=== PATIENT | male | born 1950 | race Two or more races ===

== ENCOUNTER 2019-02-13 20:55 | Emergency (ER) | payer MEDICARE, OTHER ==
[~2019-02-13] VITALS: Ht 167.6 cm; Wt 73.5 kg
[~2019-02-13 20:55] MED LIST: ASPI-1169 PO; ATOR40TA PO; FINA5TAB11 PO; METO25TA6 PO; OMEG1CAP PO; RANI150T8 PO; SOLI10TA2 PO; TAMS0.4C34 PO; VITA1TAB56 PO
--- NOTE | 2019-02-13 21:30 | NUR ---
PT BIBSELF COMPLAINING OF DIZZINESS X 1 DAY. PT STATES HE HAS RED URINE AND PROSTATE SURGERY X 2 WEEKS. PT AXO4. RESPIRATIONS EVEN AND UNLABORED. PT PUT ON THE MONITOR AND PULSE OX.
--- NOTE | 2019-02-13 21:33 | NUR ---
GOLDY TOLEDO AT BEDSIDE.
--- NOTE | 2019-02-13 21:40 | NUR ---
[employer] SECRETARY AT BEDSIDE. LABS SENT.
[2019-02-13 21:53] LABS: BASOPHILS % (AUTO) 0.6 % (0.0-2.0); EOSINOPHILS % (AUTO) 1.4 % (0.0-6.0); HEMATOCRIT 36 % (39-51); HEMOGLOBIN 12.2 g/dL (13.5-17.5); LYMPHOCYTES # (AUTO) 2.1 /CMM (0.8-4.8); LYMPHOCYTES % (AUTO) 26.2 % (20.0-44.0); MEAN CORPUSCULAR HGB CONC 34 g/dl (31.0-36.0); MEAN CORPUSCULAR VOLUME 99 fL (80-96); MONOCYTES # (AUTO) 0.6 /CMM (0.1-1.30); MONOCYTES % (AUTO) 7.4 % (2.0-12.0); NEUTROPHILS # (AUTO) 5.1 /CMM (1.8-8.9); NEUTROPHILS % (AUTO) 64.4 % (43.0-81.0); PLATELET COUNT (AUTO) 243 /CMM (150-450); WHITE BLOOD COUNT (AUTO) 7.9 K/uL (4.3-11.0)
[2019-02-13] MEDS ORDERED: IV NS 0.9% 1,000 ML BAG IV ONE (22:00)
[2019-02-13 22:03] LABS: CALCIUM, SERUM 8.1 mg/dL (8.5-10.1); POTASSIUM 4.2 mmol/L (3.5-5.1)
[2019-02-13 22:08] LABS: CREATININE 1.4 mg/dL (0.6-1.3)
[2019-02-13 22:24] LABS: APPEARANCE,URINE Slightly Cloudy (CLEAR); BILIRUBIN,URINE Negative (NEGATIVE); BLOOD, URINE Large Ery/uL (NEGATIVE); COLOR,URINE Amber (YELLOW); KETONES,URINE Negative (NEGATIVE); LEUKOCYTE ESTERASE ,URINE Trace (NEGATIVE); NITRITE, URINE Negative (NEGATIVE); PH,URINE 6.5 (5.0-8.0); PROTEIN,URINE 100 mg/dl (NEGATIVE); UGLUCOSE Negative (NEGATIVE); UROBILINOGEN,URINE 0.2 EU/dL (0.2)
[2019-02-13 22:31] LABS: BACTERIA,URINE Few /HPF (None Seen); RBC,URINE TOO NUMEROUS TO COUN /HPF (0-2); SQUAMOUS EPITHELIAL CELL,UR Few /HPF (None Seen)
--- NOTE | 2019-02-13 22:43 | NUR ---
Patient discharged to home in stable condition. Written and verbal after care instructions given. Patient verbalizes understanding of instruction. IV removed. Catheter intact and site benign. Pressure and 4x4 applied to site. No bleeding noted.
[2019-02-13 22:44] VITALS: BP 132/74
== END 2019-02-13 22:44 | disposition home or self-care (01) ==
LOC: ER 20:59
DX: R42 Dizziness and giddiness (principal); N40.0 Benign prostatic hyperplasia without lower urinary tract symptoms; I10 Essential (primary) hypertension; F41.9 Anxiety disorder, unspecified; E78.00 Pure hypercholesterolemia, unspecified; Z98.890 Other specified postprocedural states; Z79.82 Long term (current) use of aspirin
CPT/HCPCS: 36415; 80048; 81001; 85025; 96360; 99283; J7030; 81000-TC

== ENCOUNTER 2020-01-15 22:53 | Emergency (ER) | payer MEDICARE, OTHER ==
[~2020-01-15] VITALS: Ht 167.6 cm; Wt 79.4 kg
--- NOTE | 2020-01-15 23:10 | NUR ---
PATIENT CAME TO ER BED 9 C/O DIZZINESS FOR OVER A MONTH. PATIENT STATES THAT HE HAD HIS EARS CLEANED WHEN HE STARTED NOTICING DIZZINESS WHEN HE LAYS DOWN. AAOX4. NO SOB. BREATHING EVENLY AND UNLABORED ON ROOM AIR. CONNECTED TO MONITOR.
--- NOTE | 2020-01-15 23:17 | NUR ---
BLOOD DRAWN AND SENT TO LAB
[2020-01-15 23:19] LABS: BASOPHILS % (AUTO) 0.3 % (0.0-2.0); EOSINOPHILS % (AUTO) 0.8 % (0.0-6.0); HEMATOCRIT 40 % (39-51); HEMOGLOBIN 13.5 g/dL (13.5-17.5); LYMPHOCYTES # (AUTO) 2.4 /CMM (0.8-4.8); LYMPHOCYTES % (AUTO) 30.8 % (20.0-44.0); MEAN CORPUSCULAR HGB CONC 34 g/dl (31.0-36.0); MEAN CORPUSCULAR VOLUME 98 fL (80-96); MONOCYTES # (AUTO) 0.8 /CMM (0.1-1.30); MONOCYTES % (AUTO) 9.6 % (2.0-12.0); NEUTROPHILS # (AUTO) 4.6 /CMM (1.8-8.9); NEUTROPHILS % (AUTO) 58.5 % (43.0-81.0); PLATELET COUNT (AUTO) 229 /CMM (150-450); WHITE BLOOD COUNT (AUTO) 7.9 K/uL (4.3-11.0)
--- NOTE | 2020-01-15 23:19 | NUR ---
Patient is ambulatory with a steady gait.
[2020-01-15 23:24] LABS: CALCIUM, SERUM 8.6 mg/dL (8.5-10.1); CARBON DIOXIDE 33 mmol/L (21-32); CHLORIDE 102 mmol/L (98-107); CREATININE 1.1 mg/dL (0.6-1.3); GLUCOSE 91 mg/dL (74-106); POTASSIUM 3.9 mmol/L (3.5-5.1); SODIUM SERUM 140 mmol/L (136-145); UREA NITROGEN, BLOOD 26 mg/dL (7-18)
[2020-01-15 23:30] LABS: ALANINE AMINOTRANSFERASE 50 U/L (12-78); ALBUMIN 3.6 g/dL (3.4-5.0); ALKALINE PHOSPHATASE 102 U/L (46-116); ASPARTATE AMINOTRANSFERASE 34 U/L (15-37); BILIRUBIN,DIRECT 0.1 mg/dL (0.0-0.2); BILIRUBIN,TOTAL 0.4 mg/dL (0.2-1.0); TOTAL PROTEIN, SERUM 6.9 g/dL (6.4-8.2)
--- NOTE | 2020-01-16 00:16 | NUR ---
IV removed. Catheter intact and site benign. Pressure and 4x4 applied to site. No bleeding noted. Patient discharged to home in stable condition. Written and verbal after care instructions given. Patient verbalizes understanding of instruction.
[2020-01-16 00:17] VITALS: BP 122/78
== END 2020-01-16 00:17 | disposition home or self-care (01) ==
LOC: ER 22:58
DX: R42 Dizziness and giddiness (principal); I10 Essential (primary) hypertension; Z79.82 Long term (current) use of aspirin; E78.00 Pure hypercholesterolemia, unspecified; Z98.890 Other specified postprocedural states; Z90.89 Acquired absence of other organs; I45.10 Unspecified right bundle-branch block
CPT/HCPCS: 36415; 70450-TC; 80048-TC; 80076-TC; 84484-TC; 85025-TC; 85730-TC

== ENCOUNTER → 2022-01-06 | Emergency (ER) | payer MEDICARE, OTHER ==
[~2022-01-06] VITALS: Ht 167.6 cm; Wt 77.1 kg
[~2022-01-06] MED LIST changes: +HYDR-3972 PO; +HYDROCODONE/APAP 5/325MG TABLET ONE; +HYDROCODONE/APAP 5/325MG TABLET PO ONE; +MECL-159 PO; +MECLIZINE HCL 12.5 MG TABLET ONE; +MECLIZINE HCL 12.5 MG TABLET PO ONE
--- NOTE | 2022-01-06 18:30 | NUR ---
pt came in c/o headach starting yesterday, per pt he took tylenol but headach did not go away. pt is a/o x4,connected to monitor.
--- NOTE | 2022-01-06 18:30 | NUR ---
PT IS WHEELED TO CT SCAN VIA [facility].
--- NOTE | 2022-01-06 19:59 | NUR ---
Patient discharged to home in stable condition.Rx, Written and verbal after care instructions given. Patient verbalizes understanding of instruction.
[2022-01-06 20:02] VITALS: BP 136/88
== END | disposition home or self-care (01) ==
LOC: ER 18:01
DX: R42 Dizziness and giddiness (principal); G44.209 Tension-type headache, unspecified, not intractable; I10 Essential (primary) hypertension; F41.9 Anxiety disorder, unspecified; Z85.46 Personal history of malignant neoplasm of prostate; Z85.118 Personal history of other malignant neoplasm of bronchus and lung; E78.00 Pure hypercholesterolemia, unspecified; Z87.438 Personal history of other diseases of male genital organs; Z87.710 Personal history of (corrected) hypospadias; Z90.49 Acquired absence of other specified parts of digestive tract; Z79.82 Long term (current) use of aspirin; Z79.899 Other long term (current) drug therapy
CPT/HCPCS: 70450; 99284; J8597

== ENCOUNTER 2022-03-18 16:03 | Emergency (ER) | payer MEDICARE, OTHER ==
[~2022-03-18] VITALS: Ht 170.2 cm; Wt 71.2 kg
[~2022-03-18 16:03] MED LIST changes: -HYDROCODONE/APAP 5/325MG TABLET ONE; -HYDROCODONE/APAP 5/325MG TABLET PO ONE; -MECLIZINE HCL 12.5 MG TABLET ONE; -MECLIZINE HCL 12.5 MG TABLET PO ONE
--- NOTE | 2022-03-18 16:10 | NUR ---
BIB SELF C/O FEVER AND HEADACHE X 2 DAYS S/P CHEMO THERAPY INFUSION. PT ATTACHED TO MONITOR, PT IS TACHY ON MONITOR AND TEMP IS 100.5, MD AWARE. PT IS A&OX4. WARM BLNAKET PROVIDED FOR COMFORT. DR GILL AT BEDSIDE.
--- NOTE | 2022-03-18 16:22 | NUR ---
IV ESTABLIHSED L AC 20G. LABS DRAWN AND COLLECTED AT BEDSIDE.
--- NOTE | 2022-03-18 16:25 | NUR ---
PT UNALBLE TO PROVIDE URINE AT THIS TIME, PROVIDED WITH URINAL AT BEDSIDE.
[2022-03-18] MEDS: IV NS 0.9% 1,000 ML IV ONE (16:41)
[2022-03-18] MEDS ORDERED: ACETAMINOPHEN ES 500 MG TABLET ONE (16:45)
[2022-03-18] MEDS: ACETAMINOPHEN ES 500 MG TABLET PO ONE (16:48)
[2022-03-18 17:01] LABS: BASOPHILS % (AUTO) 0.3 % (0.0-2.0); HEMATOCRIT 31 % (39-51); HEMOGLOBIN 10.4 g/dL (13.5-17.5); LYMPHOCYTES # (AUTO) 0.6 K/uL (0.8-4.8); MEAN CORPUSCULAR HGB CONC 34 g/dl (31.0-36.0); MEAN CORPUSCULAR VOLUME 102 fL (80-96); MONOCYTES # (AUTO) 0.2 K/uL (0.1-1.30); MONOCYTES % (AUTO) 2.4 % (2.0-12.0); NEUTROPHILS # (AUTO) 5.4 K/uL (1.8-8.9); NEUTROPHILS % (AUTO) 87.3 % (43.0-81.0); PLATELET COUNT (AUTO) 183 K/uL (150-450); RED BLOOD CELL COUNT(AUTO) 3.06 MIL/uL (4.5-6.0); WHITE BLOOD COUNT (AUTO) 6.1 K/uL (4.3-11.0)
[2022-03-18 17:09] LABS: CALCIUM, SERUM 8.2 mg/dL (8.5-10.1); CARBON DIOXIDE 30 mmol/L (21-32); CHLORIDE 99 mmol/L (98-107); CREATININE 1.4 mg/dL (0.6-1.3); GLUCOSE 104 mg/dL (74-106); POTASSIUM 4.4 mmol/L (3.5-5.1); SODIUM SERUM 134 mmol/L (136-145); UREA NITROGEN, BLOOD 20 mg/dL (7-18)
--- NOTE | 2022-03-18 17:31 | NUR ---
COVID TEST COLLECTED AND SENT
--- NOTE | 2022-03-18 18:36 | NUR ---
URINE COLLECTED AND SENT
--- NOTE | 2022-03-18 19:13 | NUR ---
IV removed. Catheter intact and site benign. Pressure and 4x4 applied to site. No bleeding noted.Patient discharged to home in stable condition. Written and verbal after care instructions given. Patient verbalizes understanding of instruction.
[2022-03-18 19:14] VITALS: BP 109/71
[2022-03-18 19:16] LABS: BILIRUBIN,URINE NEGATIVE (NEGATIVE); COLOR,URINE YELLOW (YELLOW); LEUKOCYTE ESTERASE ,URINE NEGATIVE (NEGATIVE); NITRITE, URINE NEGATIVE (NEGATIVE); PH,URINE 5.5 (5.0-8.0); PROTEIN,URINE NEGATIVE (NEGATIVE); UGLUCOSE NEGATIVE (NEGATIVE); UROBILINOGEN,URINE 0.2 EU/dL (0.2)
[2022-03-18 20:27] LABS: BACTERIA,URINE None seen /HPF (None Seen); RBC,URINE 0-2 /HPF (0-2); SQUAMOUS EPITHELIAL CELL,UR 0-2 /HPF (None Seen); WBC,URINE 0-2 /HPF (0-3)
[2022-03-18 21:59] LABS: LYMPHOCYTES % (MANUAL) 14 % (16-48); MONOCYTES % (MANUAL) 3 % (0-11.0); NEUTROPHILS % (MANUAL) 83 (42-76)
== END 2022-03-18 19:14 | disposition home or self-care (01) ==
LOC: ER 16:03
DX: R50.2 Drug induced fever (principal); T45.1X5A Adverse effect of antineoplastic and immunosuppressive drugs, initial encounter; Y92.89 Other specified places as the place of occurrence of the external cause; C34.90 Malignant neoplasm of unspecified part of unspecified bronchus or lung; Z79.82 Long term (current) use of aspirin; Z79.899 Other long term (current) drug therapy; F41.9 Anxiety disorder, unspecified; E78.00 Pure hypercholesterolemia, unspecified; N40.0 Benign prostatic hyperplasia without lower urinary tract symptoms; Z20.822 Contact with and (suspected) exposure to COVID-19
CPT/HCPCS: 36415; 71045; 80048; 81001; 85007; 85025; 87426; 96360; 99285; J7030; C9803

== ENCOUNTER 2024-04-07 01:17 | Emergency (ER) | payer MEDICARE, OTHER ==
[~2024-04-07] VITALS: Ht 167.6 cm; Wt 68.0 kg
[~2024-04-07 01:17] MED LIST changes: +AMOX-430 PO; +LOPE2CAP PO
[2024-04-07 03:33] LABS: BASOPHILS % (AUTO) 0.1 % (0.0-2.0); EOSINOPHILS % (AUTO) 0.6 % (0.0-6.0); HEMATOCRIT 30 % (39-51); HEMOGLOBIN 9.8 g/dL (13.5-17.5); LYMPHOCYTES # (AUTO) 0.8 K/uL (0.8-4.8); LYMPHOCYTES % (AUTO) 10.2 % (20.0-44.0); MEAN CORPUSCULAR HEMOGLOBIN 30 PG (26.0-33.0); MEAN CORPUSCULAR HGB CONC 33 g/dl (31.0-36.0); MEAN CORPUSCULAR VOLUME 91 fL (80-96); MONOCYTES # (AUTO) 0.5 K/uL (0.1-1.30); MONOCYTES % (AUTO) 6.1 % (2.0-12.0); NEUTROPHILS # (AUTO) 6.7 K/uL (1.8-8.9); PLATELET COUNT (AUTO) 94 K/uL (150-450); RED BLOOD CELL COUNT(AUTO) 3.27 MIL/uL (4.5-6.0); RED CELL DISTRIBUTION WIDTH 18.3 % (11.5-15.0); WHITE BLOOD COUNT (AUTO) 8.1 K/uL (4.3-11.0)
[2024-04-07 03:43] LABS: BILIRUBIN,TOTAL 0.5 mg/dL (0.2-1.0); CALCIUM, SERUM 8.5 mg/dL (8.5-10.1); CREATININE 1.2 mg/dL (0.6-1.3); POTASSIUM 3.7 mmol/L (3.5-5.1); TOTAL PROTEIN, SERUM 6.7 g/dL (6.4-8.2)
[2024-04-07 03:46] LABS: LACTIC ACID 1.2 mmol/L (0.4-2.0)
[2024-04-07] MEDS: IV NS 0.9% 1,000 ML IV ONE (05:37)
[2024-04-07] MEDS ORDERED: ONDA4TAB5 PO (05:53)
[2024-04-07 06:28] LABS: APPEARANCE,URINE CLEAR (CLEAR); BILIRUBIN,URINE NEGATIVE (NEGATIVE); BLOOD, URINE NEGATIVE Ery/uL (NEGATIVE); COLOR,URINE YELLOW (YELLOW); KETONES,URINE TRACE mg/dL (NEGATIVE); LEUKOCYTE ESTERASE ,URINE NEGATIVE (NEGATIVE); NITRITE, URINE NEGATIVE (NEGATIVE); PROTEIN,URINE 2+ mg/dl (NEGATIVE); UGLUCOSE NEGATIVE (NEGATIVE); UROBILINOGEN,URINE 0.2 EU/dL (0.2)
[2024-04-07 06:31] LABS: ADD URINE CULTURE NO; BACTERIA,URINE None seen /HPF (None Seen); RBC,URINE 0-2 /HPF (0-2); SQUAMOUS EPITHELIAL CELL,UR Rare /HPF (None Seen); WBC,URINE 0-2 /HPF (0-3)
[2024-04-07] MEDS ORDERED: AMOX-430 PO (07:51)
[2024-04-07] MEDS ORDERED: ACETAMINOPHEN 325 MG TABLET ONE (07:56)
[2024-04-07] MEDS ORDERED: AMOX/CLAVULANATE 875 MG TABLET ONE (07:56)
[2024-04-07] MEDS: AMOX/CLAVULANATE 875 MG TABLET PO ONE (08:00)
[2024-04-07] MEDS: ACETAMINOPHEN 325 MG TABLET PO ONE (08:00)
[2024-04-07 08:08] VITALS: BP 141/77; TEMP 98.6; O2SAT 98
== END 2024-04-07 08:09 | disposition home or self-care (01) ==
LOC: ER 01:22
DX: R11.2 Nausea with vomiting, unspecified (principal); R10.84 Generalized abdominal pain; R51.9 Headache, unspecified; I10 Essential (primary) hypertension; E78.00 Pure hypercholesterolemia, unspecified; F41.9 Anxiety disorder, unspecified; Z79.899 Other long term (current) drug therapy
CPT/HCPCS: 99284; 71250; 96360; 70450; 74176; 85025; 83605; 83690; 81001; 36415; 80053; J7030

== ENCOUNTER 2025-02-06 08:35 | Emergency (ER) | payer MEDICARE, OTHER ==
[~2025-02-06] VITALS: Ht 167.6 cm; Wt 61.2 kg
[~2025-02-06 08:35] MED LIST changes: +ONDA4TAB5 PO
[2025-02-06] MEDS ORDERED: ONDANSETRON HCL/PF 4 MG/2 ML VIAL ONE (09:32)
[2025-02-06] MEDS ORDERED: BENZONATATE 100 MG CAPSULE PO ONE (09:32)
[2025-02-06] MEDS ORDERED: MORPHINE SULFATE INJ 4 MG/ML DISP.SYRIN ONE (09:33)
[2025-02-06] MEDS: MORPHINE SULFATE INJ 2 MG/ML DISP.SYRIN IV ONE (09:40)
[2025-02-06] MEDS: ONDANSETRON HCL/PF 4 MG/2 ML VIAL IVP ONE (09:40)
[2025-02-06] MEDS: BENZONATATE 100 MG CAPSULE PO PRN (09:41)
[2025-02-06 09:44] LABS: CALCIUM, SERUM 9.8 mg/dL (8.5-10.1); CREATININE 1.3 mg/dL (0.6-1.3); POTASSIUM 4.6 mmol/L (3.5-5.1)
[2025-02-06 09:51] LABS: BASOPHILS # (AUTO) 0.2 K/uL (0.0-0.2); BASOPHILS % (AUTO) 1.1 % (0.0-2.0); HEMATOCRIT 33 % (39-51); HEMOGLOBIN 10.9 g/dL (13.5-17.5); LYMPHOCYTES % (AUTO) 6.5 % (20.0-44.0); MEAN CORPUSCULAR HEMOGLOBIN 29 PG (26.0-33.0); MEAN CORPUSCULAR HGB CONC 33 g/dl (31.0-36.0); MEAN CORPUSCULAR VOLUME 88 fL (80-96); MONOCYTES # (AUTO) 1.1 K/uL (0.1-1.30); MONOCYTES % (AUTO) 7.2 % (2.0-12.0); NEUTROPHILS % (AUTO) 85.2 % (43.0-81.0); PLATELET COUNT (AUTO) 466 K/uL (150-450); RED BLOOD CELL COUNT(AUTO) 3.72 MIL/uL (4.5-6.0); RED CELL DISTRIBUTION WIDTH 18.5 % (11.5-15.0); WHITE BLOOD COUNT (AUTO) 15.2 K/uL (4.3-11.0)
[2025-02-06 09:53] LABS: LACTIC ACID 0.9 mmol/L (0.4-2.0)
[2025-02-06 09:56] LABS: ALBUMIN 2.9 g/dL (3.4-5.0); BILIRUBIN,DIRECT 0.2 mg/dL (0.0-0.2); BILIRUBIN,TOTAL 0.5 mg/dL (0.2-1.0); TOTAL PROTEIN, SERUM 7.7 g/dL (6.4-8.2)
[2025-02-06] MEDS: IV NS 0.9% 1,000 ML BAG IV ONE (11:29)
[2025-02-06 11:51] LABS: APPEARANCE,URINE CLEAR (CLEAR); BILIRUBIN,URINE NEGATIVE (NEGATIVE); BLOOD, URINE NEGATIVE Ery/uL (NEGATIVE); COLOR,URINE YELLOW (YELLOW); KETONES,URINE NEGATIVE (NEGATIVE); LEUKOCYTE ESTERASE ,URINE NEGATIVE (NEGATIVE); NITRITE, URINE NEGATIVE (NEGATIVE); PH,URINE 5.5 (5.0-8.0); PROTEIN,URINE 2+ mg/dl (NEGATIVE); UGLUCOSE NEGATIVE (NEGATIVE); UROBILINOGEN,URINE 0.2 EU/dL (0.2)
[2025-02-06] MEDS ORDERED: IOHEXOL-350 100 ML VIAL IV ONE (12:58)
[2025-02-06] MEDS ORDERED: CT SWABBABLE VALVE TRANS SET 1 EA INFUS.SET MC ONE (12:59)
[2025-02-06] MEDS ORDERED: IV NS 0.9% 250 ML IV ONE (12:59)
[2025-02-06] MEDS ORDERED: ZOLP5TAB2 PO (14:20)
[2025-02-06] MEDS ORDERED: ONDA4TAB11 PO (14:20)
[2025-02-06] MEDS ORDERED: HYDR-3980 PO (14:20)
[2025-02-06] MEDS ORDERED: BENZ-13 PO (14:20)
[2025-02-06 14:53] VITALS: BP 124/67; TEMP 98.3; O2SAT 99
[2025-02-06 14:54] LABS: ADD URINE CULTURE YES; BACTERIA,URINE 1+ /HPF (None Seen); COARSE GRANULAR CASTS,URINE Few /LPF (None Seen); RBC,URINE 0-2 /HPF (0-2); WBC,URINE 0-2 /HPF (0-3)
== END 2025-02-06 14:54 | disposition home or self-care (01) ==
LOC: ER 08:51
DX: C80.1 Malignant (primary) neoplasm, unspecified (principal); R00.0 Tachycardia, unspecified; R05.9 Cough, unspecified; I10 Essential (primary) hypertension; E78.00 Pure hypercholesterolemia, unspecified; G47.00 Insomnia, unspecified; F41.9 Anxiety disorder, unspecified; N40.0 Benign prostatic hyperplasia without lower urinary tract symptoms; Z79.82 Long term (current) use of aspirin; Z79.899 Other long term (current) drug therapy; Z90.89 Acquired absence of other organs; Z20.822 Contact with and (suspected) exposure to COVID-19
CPT/HCPCS: 99285; 96374; 71275; 71045; 96361; 96375; 87426; 93005; 87804 ×2; 85025; 80048; 87040 ×2; 87086; 83605; 80076; 85378; 81001; 36415; 83880; J2270; J2405; J7030; J7050; Q9967